=== PATIENT | male | born 1950 | race Caucasian/White ===

== ENCOUNTER 2018-01-11 07:30 | Inpatient (IN) ==
[2018-01-18] MEDS ORDERED: LIDOCAINE 1% (10mg/ml) 2mL INJ PF SDV ID ONE (06:00)
[2018-01-18] MEDS ORDERED: METOCLOPRAMIDE 10mg/2ml INJECTION IVP ONE (06:00)
[2018-01-18] MEDS ORDERED: ACETAMINOPHEN 500 MG TABLET PO ONE (06:00)
[2018-01-18] MEDS ORDERED: TRANEXAMIC ACID 1,000 MG in NS 100 ML IV ONE ×2 (06:00→07:00)
[2018-01-18] MEDS ORDERED: MELOXICAM 15 MG TABLET PO ONE (06:00)
[2018-01-18] MEDS ORDERED: DEXAMETHASONE 4 MG/ML INJECTION IVP ONE (06:00)
[2018-01-18] MEDS ORDERED: ONDANSETRON 4 MG/2 ML INJECTION IVP ONE (06:00)
[2018-01-18] MEDS ORDERED: FAMOTIDINE PB 20 MG/50 ML BAG IV ONE (06:00)
[2018-01-18] MEDS ORDERED: EPINEPHrine PF 0.25 MG, BUPIVACAINE 0.25% PF 30 ML, KETOROLAC INJ 60 MG in NS 30 ML OPSITE ONE (08:00)
[2018-01-18 09:44] VITALS: BMI 25.8
[2018-01-18] MEDS ORDERED: LIDOCAINE 2% (100mg/5mL) 5ml PF SDV ONE (09:46)
[2018-01-18] MEDS ORDERED: BUPIVACAINE 0.75%/DEXTROSE 8.5% SPINAL 2 ML AMPULE IJ ONE (09:46)
[2018-01-18] MEDS ORDERED: MIDAZOLAM 2mg/2ml INJECTION ONE (09:47)
[2018-01-18] MEDS ORDERED: PROPOFOL 500 MG/50 ML VIAL ONE ×2 (09:47→14:43)
--- NOTE | 2018-01-18 09:52 | Anesthesia Preoperative Report ---
Anesthesia Preoperative Record - Date and Time Date: 01/18/18 Preoperative Diagnosis: Total Knee Revision T84.84XA Proposed Procedure: Right Total knee revision NPO Since Date: 01/18/18 NPO Since Time: 00:00 Allergies/Adverse Reactions: Allergies Allergy/AdvReac Type Severity Reaction Status Date / Time codeine AdvReac Unknown NAUSEA Verified 12/20/17 11:07 hydrocodone AdvReac Unknown NAUSEA Verified 12/20/17 11:07 - Vital Signs Vital Signs: Temperature 98.3 F 01/18/18 09:42 Pulse Rate 66 01/18/18 09:42 Respiratory Rate 15 01/18/18 09:42 Blood Pressure 160/93 H 01/18/18 09:42 Pulse Oximetry 96 01/18/18 09:42 Height and Weight: Height 1.83 m Weight 86.3 kg Body Mass Index 25.8 - Medications Inpatient Medications: Current Medications Epinephrine HCl 0.25 mg/Bupivacaine HCl 30 ml/Ketorolac Tromethamine 60 mg/ Sodium Chloride 62.25 mls @ 1 mls/hr OPSITE INTRAOP ONE; Protocol Stop: 01/20/18 22:14 Lactated Ringer's (Lactated Ringers) 1,000 mls @ 50 mls/hr IV .Q20H DEBORA Isopropyl Alcohol (Nozin Nasal Swab) 1 each DASHAWN Q1M DEBORA Stop: 01/18/18 10:48 Sodium Chloride (Iv Flush) 10 - 80 ml IV PRN PRN PRN Reason: Flushing Home Medications: Home Medications Medication Instructions Recorded Confirmed Type Lutein 20 mg PO DAILY #0 10/15/14 12/20/17 History dutasteride 0.5 mg capsule 0.5 mg PO DAILY cap 02/24/17 12/20/17 History Gabapentin [Neurontin] 600 mg PO BID 03/15/17 12/20/17 History Omeprazole [Prilosec] 1 cap PO ACB 04/01/17 12/20/17 History Naproxen [Aleve (Naproxen) 220 mg] 440 mg PO BID PRN 04/16/17 12/20/17 History Calcium 500 + D [Os Mando-D 500] 1 tab PO DAILY 12/20/17 12/20/17 History Multivitamin [One Daily] 1 each PO DAILY 12/20/17 12/20/17 History Is Patient on Beta Yi?: No - Medical History Respiratory: Reports: Asthma (as a child.) DENIES: Sleep Apnea Gastrointestional: Reports: Gastroesophageal Reflux Disease (controlled with meds), Hiatal Hernia, Ulcer Neuro/Musculoskeletal: Reports: Back Problems Other History: Reports: Anesthesia Reactions (PONV) - Surgical History GI Surgery/Treatments: Reports: Hernia Repair (x2), Colonoscopy, EGD Musculoskeletal Surgery/Tx: Reports: Total Knee Replacement (right), Other ( bone spurs in foot) Hx Family Anesthesia Reaction: No - Social History Smoking Status: Former smoker Hx Chewing Tobacco Use: No Second Hand Exposure: No Substance Use Type: does not use Alcohol Intake: current Alcohol Intake Frequency: holidays/special occasions only - Pertinent Findings EKG: Sinus Rhythm - Physical Exam Respiratory Exam: Present: lungs clear Cardiovascular Exam: Present: regular rate and rhythm - Airway Assessment Mallampati Score: II TMD: 3 Fingerbreadths Neck Extension: fair Overall Assessment: no airway concerns - ASA ASA Score: 2 - Plan Regional/Trunk Block: Spinal - Discussion Discussion: Discussed risks/options/alternatives of anesthesia and questions answered. Patient consents. Nursing pain assessment noted. Attestation Statement: Prior to the delivery of any anesthetic medication, I examined the patient, developed the plan, obtained the patient's consent and discussed the risk and benefits of the procedure with the patient/guardian.
[2018-01-18] MEDS: NOZIN NASAL SWAB NAS SCH ×4 (10:10→22:02)
[2018-01-18] MEDS ORDERED: SALINE FLUSH 10ml SYRINGE IV PRN (10:33)
[2018-01-18] MEDS ORDERED: VANCOMYCIN 1,000 MG INJECTION ONE (10:59)
[2018-01-18] MEDS ORDERED: CEFAZOLIN 1 G INJECTION IVP ONE (11:00)
[2018-01-18] MEDS ORDERED: VANCOMYCIN 1,000 MG INJECTION IAR ONE (12:07)
[2018-01-18] MEDS ORDERED: PROPOFOL 60 ML ONE ×2 (12:28→13:33)
[2018-01-18] MEDS ORDERED: LR 1,000 ML IV SCH (12:30)
[2018-01-18] MEDS ORDERED: ROPIVACAINE 0.5% (5mg/ml) 30ml INJ ONE (14:51)
[2018-01-18] MEDS ORDERED: FentaNYL 100 MCG/2 ML INJECTION IVP PRN (15:18)
[2018-01-18] MEDS ORDERED: HYDROMORPHONE 2 MG/ML INJECTION IVP PRN (15:18)
[2018-01-18] MEDS ORDERED: ONDANSETRON 4 MG/2 ML INJECTION IVP PRN (15:18)
--- NOTE | 2018-01-18 15:18 | Anesthesia Procedure Note ---
Peripheral Nerve Blockade - Procedure Physician: Aries Gutierrez MD Date: 01/18/18 Surgical Procedure: Right total knee revision Discussion: Discussed risks/options/alternatives of anesthesia and questions answered. Patient consents. Nursing pain assessment noted. Block Start: 15:13 Block Stop: 15:14 Block Employed: Adductor Canal-Right Indication: Post-Operative Pain Approach: Right Side Confirmed Position: Supine Patient: Consent, Risks/Benefits Discussed, Informed, Post Block Act. Discussed IV Sedation: No Initial Vital Signs: Temperature 98.3 F 01/18/18 09:42 Temperature Source Oral 01/18/18 09:42 Pulse Rate 66 01/18/18 09:42 Respiratory Rate 15 01/18/18 09:42 Blood Pressure 160/93 H 01/18/18 09:42 Blood Pressure Mean 115 01/18/18 09:42 Blood Pressure Position Sitting 01/18/18 09:42 Pulse Oximetry 96 01/18/18 09:42 Oxygen Delivery Method 01/18/18 09:42 Post Vital Signs: Temperature 98.3 F 01/18/18 09:42 Pulse Rate 66 01/18/18 09:42 Respiratory Rate 15 01/18/18 09:42 Blood Pressure 160/93 H 01/18/18 09:42 Pulse Oximetry 96 01/18/18 09:42 Initial Pain Pain Score: 0 Post Block Pain Score: 0 Prep: Chlorhexadine/ETOH Ultrasound Used?: Yes - Injectate Ropivacaine (%): 0.5 Ropivacaine (mL): 25 Was Epi 1:200,000 Used?: No Injection: Injection made incrementally with constant monitoring and aspiration every ml
[2018-01-18] MEDS ORDERED: NOZIN NASAL SWAB NAS ONE (15:37)
[2018-01-18] MEDS ORDERED: DiphenhydrAMINE 50 MG/ML INJECTION IVP PRN (15:37)
[2018-01-18] MEDS ORDERED: LORazepam 1 MG TABLET PO PRN (15:37)
[2018-01-18] MEDS ORDERED: DiphenhydrAMINE 25 MG CAPSULE PO PRN (15:37)
[2018-01-18] MEDS: NS 1,000 ML IV SCH (15:51)
--- NOTE | 2018-01-18 15:52 | Operative Note ---
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 PROCEDURE Revision of right total knee arthroplasty. SURGEON Aries Gutierrez MD BAG CHECKER Harley Cisse PA-C COMPLICATIONS None ANESTHESIA Spinal EBL AND FLUIDS Please see Anesthetic records. TOURNIQUET TIME Please see Anesthetic records. DESCRIPTION OF PROCEDURE Mr. Bedolla and his right knee were identified and marked in the preoperative holding area. He was brought back to the operating suite and placed supine on the operating table. After a spinal anesthetic administered, his right lower extremity was prepped and draped in my normal sterile fashion. Time-out was performed. The knee was taken through a range of motion. He had full extension and flexion to 120-125 degrees. The knee was ligamentously stable throughout range of motion. Anterior midline incision was made utilizing the previous incision. Sharp dissection was carried down to muscle fascia and a medial parapatellar arthrotomy was performed. The components were exposed. There was no obvious complication of the components. There was no significant wear to the plastic. No signs of infection. I then began to remove the components, first using a saw to undermine the cement macdonald. This was followed with flexible osteotomes and then we were able to remove both components. The femoral component was removed first. It lost a little bit of anterior bone. The tibial component was then removed. It also just lost minimal amount of bone. The posterior half of the tibial cement mantle was untouched. It did not appear to have any bondage to the tibial component. The tibia was then reamed to a size 17. A freshened-up cut was performed. It did not appear that we needed any augments. The tibia was then sized at a 6 with a 6 mm offset using 100 mm stem. We then moved to the femoral component. It was sized at a 6. We reamed to a 21; 150 mm stem. It did not require an offset. Both trial components were removed. We then placed the knee into extension. At this time, the tourniquet was inflated. I used the spacer block and with a 10 mm augment laterally on the femur and a 5 mm augment medially on the femur, a 16 mm spacer balanced well in extension. We then moved to flexion at 90 degrees and with the same spacer block with a 16 mm spacer we used gap balancing technique to set the femoral rotation. The 4-in-1 cutting block was pinned in place and the remaining cuts were performed. Only posterior cuts were necessary. We then placed the trial in the femur as well as the tibia with a 16 mm spacer. This felt good. He had full range of motion and was stable with TS insert. We then removed all components. The wound was thoroughly irrigated and then prepared for cementing by drying it. Final components were assembled on the back table and then using three doses of cement, were cemented into place. Cement was not used on the stems. The knee was allowed to cure in extension. After trialing, we did like the 19 mm spacer better. A small MCL release was performed with an 18-gauge needle. This allowed him good stability throughout range of motion. It was well balanced. The patella tracked well. Patella was in good condition and did show any signs it needed revision. After a final thorough irrigation, one gram of vancomycin powder was placed into the joint. The capsule was closed with #1 Vicryl. I then left my assistant women's rowing coach to close the subcutaneous tissue with 2-0 Vicryl and skin was closed with running 3-0 Monocryl followed by Dermabond and a sterile dressing. He was then taken to the recovery room under the care of Anesthesia. He tolerated the procedure well. There were no complications. Throughout the case, the knee was irrigated with betadine solution and joint cocktail was injected throughout the soft tissues. CLIFFORD
--- NOTE | 2018-01-18 15:54 | Anesthesia Postoperative Note ---
- Date and Time Date: 01/18/18 Time: 15:53 - Status Patient Participated in Evaluation: Patient Participated in Person Vital Signs: Temperature 97.8 F 01/18/18 15:38 Pulse Rate 80 01/18/18 15:35 Respiratory Rate 16 01/18/18 15:08 Blood Pressure 104/66 01/18/18 15:35 Pulse Oximetry 99 01/18/18 15:35 Respiratory Function: Airway Patent Cardiovascular Function: Regular Pulse EKG: Sinus Rhythm Mental Status: Alert and Oriented Pain Intensity: 0 Hydration: IV Infusing Nausea/Vomiting: None Complications During Recover: None Apparent - Follow-Up Instructions Instructions: Per Surgeon
--- NOTE | 2018-01-18 16:15 | XRay Report ---
Indication: postoperative image PROCEDURE: XR knee RT 2V: Encounter: Initial Comparison: December 20, 2017 Findings: Postoperative changes of right total knee revision are seen within extended femoral and tibial components. There is expected postoperative subcutaneous gas. No evidence of hardware failure or acute fracture. No retained radiopaque surgical instruments or sponges. Overlying material causing artifact. Impression: Revision right total knee prosthesis without evidence of immediate complication. .
[2018-01-18] MEDS: ONDANSETRON 4 MG/2 ML INJECTION IVP PRN (16:52)
[2018-01-18] MEDS: NAPROXEN 220 MG TABLET PO SCH (17:49)
[2018-01-18] MEDS: ACETAMINOPHEN 325 MG TABLET PO SCH ×2 (17:49→22:02)
[2018-01-18] MEDS ORDERED: DEXAMETHASONE 20 MG/5 ML INJECTION IVP ONE (18:00)
[2018-01-18] MEDS: CEFAZOLIN 2 G in NS 100 ML IV SCH (20:02)
[2018-01-18] MEDS: Oxycodone *IR* 5 MG TABLET PO PRN ×2 (20:17→20:47)
[2018-01-18] MEDS: ASPIRIN *EC* 81 MG TABLET PO SCH (22:02)
[2018-01-18] MEDS: SENNOSIDES 8.6 MG TABLET PO SCH (22:02)
[2018-01-18] MEDS: DOCUSATE SODIUM 100 MG CAPSULE PO SCH (22:03)
[2018-01-18] MEDS: GABAPENTIN 600 MG TABLET PO SCH (22:03)
[2018-01-19] MEDS: Oxycodone *IR* 5 MG TABLET PO PRN ×3 (03:04→06:29)
[2018-01-19] MEDS: CEFAZOLIN 2 G in NS 100 ML IV SCH (03:05)
[2018-01-19] MEDS: NS 1,000 ML IV SCH ×2 (05:59→17:40)
[2018-01-19] MEDS: NOZIN NASAL SWAB NAS SCH ×3 (05:59→22:23)
[2018-01-19] MEDS: ONDANSETRON 4 MG/2 ML INJECTION IVP PRN ×2 (06:27→11:09)
[2018-01-19] MEDS: OMEPRAZOLE 20 MG CAPSULE PO SCH ×2 (06:30→12:45)
--- NOTE | 2018-01-19 07:55 | Orthopedic Progress Note ---
Date: Date: 01/19/18 Time: 0750 Subjective/Severity of Illness: Tigre is doing great. He reports the knee feels stable when he is up to the bathroom. Minimal pain so far. He is tolerating the Claire but may need to switch to Ultram if he begins having trouble. No CP, cough or SOA. He has been up with good tolerance. Pt is hopeful to go home today. Orthopedic Exam Vital signs: Temperature 97.5 F 01/19/18 03:36 Pulse Rate 102 H 01/19/18 03:36 Respiratory Rate 12 01/19/18 03:36 Blood Pressure 128/69 01/19/18 03:36 Pulse Oximetry 94 01/19/18 05:40 - Constitutional General Appearance: Present: alert, cooperative, no acute distress - Respiratory Exam Present: non-labored - Cardiovascular Exam Present: pedal pulses intact - Extremities Exam Present: pulses intact. Absent: calf tenderness - Dressing Dressing: dry, intact, no drainage - Integumentary Exam Present: pink, warm, dry - Neurological Exam Present: intact to light touch, no deficits - Psychiatric Exam Present: alert, normal affect - Labs Result Diagrams: 01/19/18 04:04 01/19/18 04:04 Abnormal lab results 01/19/18 01/19/18 Range/Units 04:04 04:04 Hgb 12.2 L (13.5-17.5) GM/DL Chloride 110 H (98-107) MEQ/L BUN 23.0 H (9-20) MG/DL Glucose 140 H (75-110) MG/DL Calcium 8.3 L (8.4-10.2) MG/DL H & H 01/19/18 Range/Units 04:04 Hgb 12.2 L (13.5-17.5) GM/DL Orthopedic Assessment and Plan (1) Aseptic loosening of prosthetic knee Status: Acute Qualifiers: Encounter type: initial encounter Qualified Code(s): T84.038A - Mechanical loosening of other internal prosthetic joint, initial encounter; Z96.659 - Presence of unspecified artificial knee joint Assessment and Plan: S/P revision of left total knee, all except the patellar component. DOS . Aspirin protocol for VTE prophylaxis. SCD's for added DVT coverage. PT/OT services to improve independent function. Discharge Planning per Case Management. Anticipate discharge later today. He is tolerating the Roxicodone, but is concerned about nausea. May need to send him home with PO Zofran or Tramadol. - Anticoagulation Therapy Anticoagulation: ASA 81 mg PO BID x6 weeks Hospital Course Summary Disclaimer: The visit summary below is not to be considered part of the above Progress Note.
[2018-01-19] MEDS: ONDANSETRON 4 MG TABLET PO PRN ×2 (08:59→20:52)
[2018-01-19] MEDS ORDERED: SCOPOLAMINE PATCH REMOVAL TD ONE (10:57)
[2018-01-19] MEDS ORDERED: SCOPOLAMINE 1mg/3 days PATCH (Eq. 1.5 Patch) TD SCH (11:00)
[2018-01-19] MEDS: ACETAMINOPHEN 325 MG TABLET PO SCH ×4 (12:44→20:52)
[2018-01-19] MEDS: POLYETHYL GLYCOL 3350 17gm PACKET PO SCH (12:45)
[2018-01-19] MEDS: DOCUSATE SODIUM 100 MG CAPSULE PO SCH ×2 (12:46→20:52)
[2018-01-19] MEDS: NAPROXEN 220 MG TABLET PO SCH ×2 (14:37→16:39)
[2018-01-19] MEDS ORDERED: SENNOSIDES 8.6 MG TABLET PO PRN (15:07)
[2018-01-19] MEDS: GABAPENTIN 600 MG TABLET PO SCH ×2 (15:52→20:52)
[2018-01-19] MEDS: ASPIRIN *EC* 81 MG TABLET PO SCH ×2 (16:39→20:52)
[2018-01-19] MEDS: DUTASTERIDE 0.5 MG CAPSULE PO SCH (16:40)
[2018-01-19] MEDS: SENNOSIDES 8.6 MG TABLET PO SCH (20:52)
[2018-01-20] MEDS: TRAMADOL 50 MG TABLET PO PRN ×2 (03:31→13:02)
[2018-01-20] MEDS ORDERED: OMEPRAZOLE 20 MG CAPSULE PO SCH (06:30)
[2018-01-20] MEDS: NOZIN NASAL SWAB NAS SCH ×2 (06:31→15:06)
[2018-01-20] MEDS: NAPROXEN 220 MG TABLET PO SCH ×2 (09:01→17:09)
[2018-01-20] MEDS: ACETAMINOPHEN 325 MG TABLET PO SCH ×3 (09:01→17:07)
[2018-01-20] MEDS: POLYETHYL GLYCOL 3350 17gm PACKET PO SCH (09:02)
[2018-01-20] MEDS: DUTASTERIDE 0.5 MG CAPSULE PO SCH (09:02)
[2018-01-20] MEDS: GABAPENTIN 600 MG TABLET PO SCH (09:02)
[2018-01-20] MEDS: DOCUSATE SODIUM 100 MG CAPSULE PO SCH (09:02)
[2018-01-20] MEDS: ASPIRIN *EC* 81 MG TABLET PO SCH (09:02)
[2018-01-20 16:33] VITALS: BP 119/66; PULSE 70; RESP 14; O2SAT 100
[2018-01-20 16:37] VITALS: TEMP 97.5
--- NOTE | 2018-01-20 17:23 | Discharge Summary ---
Letter to PCP Cover Letter: This is a short letter to update you on your patient's status and to ask for your assistance in managing their postoperative needs. Tigre Bedolla underwent a right total knee revision by Dr. Gutierrez on . Aspirin therapy was initiated for DVT prophylaxis. Aspirin 81mg should be given BID for six weeks postoperatively. Details for their hospitalization can be found in the discharge summary attached. The patient is scheduled to see you one week after surgery for a post-operative check. I hope you find the discharge summary informative and helpful as you resume care of your patient after their surgery. If our office can be of any assistance, please feel free to contact us any time. Orthopedic Discharge Info Date of admission: 01/18/18 09:12 Primary care physician: María Becerra MD Attending Physician: Aries Gutierrez MD Consults: 01/18/18 09:26 Consult to Anesthesiology [CONS] Routine Reason For Exam: Preoperative Assessment 01/18/18 15:37 Case Management Consult [CONS] Routine Reason For Exam: Discharge Planning DME-Walker [CONS] Routine Height: 6 ft Weight: 86.3 kg Total Joint Outpatient Therapy [CONS] Routine Comment: Remove dressing in 2 weeks - Discharge Diagnosis (1) Aseptic loosening of prosthetic knee Qualifiers: Encounter type: initial encounter Qualified Code(s): T84.038A - Mechanical loosening of other internal prosthetic joint, initial encounter; Z96.659 - Presence of unspecified artificial knee joint Status: Acute - Procedures Procedures: Procedures Total knee replacement (11/29/14) - Laboratory Result Diagrams: 01/20/18 03:54 01/20/18 03:54 Laboratory: Abnormal lab results 01/20/18 01/20/18 Range/Units 03:54 03:54 Hgb 11.1 L (13.5-17.5) GM/DL Chloride 108 H (98-107) MEQ/L Calcium 8.1 L (8.4-10.2) MG/DL H & H 01/19/18 01/20/18 Range/Units 04:04 03:54 Hgb 12.2 L 11.1 L (13.5-17.5) GM/DL Orthopedic Discharge HPI - HPI Comments This patient was admitted for elective surgical tx of end stage degenerative joint disease that failed to respond to conservative treatment. Further details of this is found in the admission H&P. Orthopedic Hospital Course Hospital course: 01/20/18 17:19 After appropriate preoperative clearance and signing of operative consent, the patient was given IV antibiotics, according to orthopedic protocol. The patient was taken to the operating room and underwent a right total knee revision. Following surgery, antibiotics were discontinued less than 24 hours according to joint protocol. Appropriate anticoagulants were initiated and SCDs added for DVT prevention. The dressing was clean, dry, and intact. Pain control was obtained via multimodal approach. Bowel motivation addressed with scheduled and PRN medications. Early mobilization was initiated through PT services. Discharge arrangements made by a collaborative effort between the patient and Case Management. He had some post op nausea that resolved with a scopolamine patch and switching to Tramadol. No other complications were encountered and pt was discharged home. Follow-up is scheduled in 2-3 weeks. Discharge instructions given by orthopedic providers and nursing staff at discharge. Discharge condition was good. Care extended to > 2 midnight stays?: No Discharge Plan - Med Rec/Dispo Referrals/Follow Up: María Becerra MD [Primary Care Provider] - 01/26/18 2:45 pm Harley Cisse PA [Physician Care Partner] - 02/09/18 1:00 pm Shahabuvyanci Instructions: [facility] Ortho Postop Instructions Additional Instructions: PHYSICAL THERAPY AT [facility] JANU[facility]. CHECK IN AT 0845 FOR 0900 APPOINTMENT. Prescriptions: New Aspirin *EC* [Ecotrin] 81 mg PO BID tablet PEG 3350 17gm PACKET [Miralax] 17 gm PO DAILY packet Tramadol [Ultram] 50 - 100 mg PO Q6H PRN #50 tab PRN Reason: Pain Acetaminophen [Tylenol] 650 mg PO QID tablet Continue Omeprazole [Prilosec] 1 cap PO DAILY Multivitamin [One Daily] 1 each PO DAILY Saw [place] Fruit [Saw [place]] 450 mg PO DAILY Calcium Carb,Gluc/Mag Ox,Gluc [Calcium Magnesium Caplet] 1 each PO DAILY Lactobacillus Acidophilus [Probiotic Acidophilus] 1 tab PO DAILY Lutein 20 mg PO DAILY #0 Gabapentin [Neurontin] 600 mg PO BID Naproxen [Aleve (Naproxen) 220 mg] 440 mg PO BID PRN PRN Reason: Pain Calcium 500 + D [Os Mando-D 500] 1 tab PO DAILY dutasteride 0.5 mg capsule 0.5 mg PO DAILY cap Discontinued Aspirin [Adult Aspirin] 81 mg PO DAILY - Disposition 01 Discharged Home, Self-Care - Dismissal Complete Discharge Instructions are:: Complete
[2018-01-20] MEDS ORDERED: BISACODYL 10 MG SUPPOSITORY RECTALLY SCH (20:00)
[2018-01-22] MEDS ORDERED: SCOPOLAMINE PATCH REMOVAL TD SCH (12:00)
== END 2018-01-20 17:45 | disposition home or self-care (01) | DRG 468 ==
LOC: NMC.PERIOP 01-18 09:12 → SRG 01-18 15:40
PROVIDERS: ADMIT Orthopaedic Surgery; ATTEND Orthopaedic Surgery